=== PATIENT | male | born 1980 | race African-American/Black ===

== ENCOUNTER 2016-11-29 16:30 | Emergency (ER) | payer SELFPAY ==
[~2016-11-29] VITALS: Ht 170.2 cm; Wt 55.3 kg
[2016-11-29] MEDS ORDERED: IV NORMAL SALINE 1000ML BAG 1,000 ML IV ONE (17:00)
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
[2016-11-29 19:18] VITALS: BP 120/77
--- NOTE | 2016-11-30 08:07 | RAD ---
Right foot, 3 views, 11/29/2016: History: Injury, pain No fracture or dislocation is identified. There is mild subcutaneous edema. IMPRESSION: No acute bony abnormality is detected.
--- NOTE | 2016-11-30 08:09 | RAD ---
Left hand, 3 views, 11/29/2016: History: Injury, pain No fracture or dislocation is identified. The soft tissues are unremarkable. IMPRESSION: No acute left hand abnormality is detected.
== END 2016-11-29 19:25 | disposition home or self-care (01) ==
LOC: ER 16:30
DX: S60.222A Contusion of left hand, initial encounter (principal); S90.31XA Contusion of right foot, initial encounter; R51 Headache; F17.210 Nicotine dependence, cigarettes, uncomplicated; V03.90XA Pedestrian on foot injured in collision with car, pick-up truck or van, unspecified whether traffic or nontraffic accident, initial encounter; Y93.01 Activity, walking, marching and hiking; Y99.8 Other external cause status; Y92.89 Other specified places as the place of occurrence of the external cause
CPT/HCPCS: 70450; 72125; 72128; 73130; 73630; 96360; 99284; J7030

== ENCOUNTER 2018-05-08 18:34 | Emergency (ER) | payer OTHER ==
[~2018-05-08] VITALS: Ht 172.7 cm; Wt 55.3 kg
[2018-05-08 18:48] VITALS: BP 115/81
[2018-05-08] MEDS ORDERED: NAPROXEN 500 MG TABLET PO STA (19:40)
[2018-05-08] MEDS ORDERED: CYCLOBENZAPRINE 10 MG TABLET. PO ONE (19:45)
[2018-05-08] MEDS ORDERED: HYDROcodone/APAP 5/325MG 1 TAB TABLET PO ONE (19:45)
[2018-05-08] MEDS ORDERED: CYCL10TA2 PO (19:49)
[2018-05-08] MEDS ORDERED: DICL50TA4 PO (19:49)
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
== END 2018-05-08 19:54 | disposition home or self-care (01) ==
LOC: ER 18:34
DX: M25.512 Pain in left shoulder (principal); M54.5 Low back pain; R07.81 Pleurodynia; V43.52XA Car driver injured in collision with other type car in traffic accident, initial encounter; Y93.89 Activity, other specified; Y92.89 Other specified places as the place of occurrence of the external cause; Y99.8 Other external cause status
CPT/HCPCS: 71101; 72100; 73030; 99284

== ENCOUNTER 2019-04-27 01:53 | Emergency (ER) | payer SELFPAY ==
[~2019-04-27] VITALS: Ht 170.2 cm; Wt 59.0 kg
[~2019-04-27 01:53] MED LIST: CYCL10TA2 PO; DICL50TA4 PO
--- NOTE | 2019-04-27 02:38 | PHYS DOC ---
Past Medical History Past Medical History: No Pertinent History Past Surgical History: No Surgical History Alcohol Use: Occasionally Drug Use: None Adult General Chief Complaint Chief Complaint: URINARY RETENTION [place] [facility] [facility] HPI 38-year-old male presents to the emergency department with complaints of urinary retention. As any fever, blood, burning with urination however states he's had difficulty. This is been ongoing times one week. Patient describes abdominal di stention. Denies any back pain or flank pain. He was told when he was younger that he of enlarged prostate. Patient denies any chest pain, shortness of breath nausea, vomiting. All other ROS negative unless documented in HPI Review of Systems Review of Systems See Above Allergies Allergies Allergies Coded Allergies Type Severity Reaction Last Updated Verified No Known Drug Allergies 05/15/15 No Physical Exam Physical Exam See Above Constitutional: Well developed, well nourished, no acute distress, non-toxic appearance. [] Cardiovascular:Heart rate regular rhythm, no murmur [] Lungs & Thorax: Bilateral breath sounds clear to auscultation [] Abdomen: Bowel sounds normal, soft, no tenderness, no masses, no pulsatile masses. Bladder distention [] Skin: Warm, dry, no erythema, no rash. [] Back: No tenderness, no CVA tenderness. [] Extremities: No tenderness, no edema. [] Neurologic: Alert and oriented X 3, no focal deficits noted. [] Psychologic: Affect normal, judgement normal, mood normal. [] : prostate exam not boggy on exam, mild discomfort however no significant pain Current Patient Data Vital Signs Vital Signs Date Time Temp Pulse Resp B/P (MAP) Pulse Ox O2 Delivery O2 Flow Rate FiO2 04/27/19 01:55 98.1 98 20 121/73 (89) 96 Room Air 98.1 Lab Values Laboratory Tests Test 04/27/19 02:14 Urine Collection Type Unknown Urine Color Yellow Urine Clarity Clear Urine pH 6.0 Urine Specific [place] <=1.005 Urine Protein Negative mg/dL (NEG-TRACE) Urine Glucose (UA) Negative mg/dL (NEG) Urine Ketones (Stick) Negative mg/dL (NEG) Urine Blood Negative (NEG) Urine Nitrite Negative (NEG) Urine Bilirubin Negative (NEG) Urine Urobilinogen Dipstick 0.2 mg/dL (0.2 mg/dL) Urine Leukocyte Esterase Negative (NEG) Urine RBC 0 /HPF (0-2) Urine WBC 0 /HPF (0-4) Urine Squamous Epithelial Cells Occ /LPF Urine Bacteria 0 /HPF (0-FEW) EKG EKG [] Radiology/Procedures Radiology/Procedures [] Course & Med Decision Making Course & Med Decision Making Pertinent Labs and Imaging studies reviewed. (See chart for details) [] 38-year-old male presents to the emergency department with complaints of urinary retention. As any fever, blood, burning with urination however states he's had difficulty. This is been ongoing times one week. Patient describes abdominal distention. Denies any back pain or flank pain. He was told when he was younger that he of enlarged prostate. Patient denies any chest pain, shortness of breath nausea, vomiting. UA reviewed - negative Bladder scan 210 Discussed findings with patient Plan for flomax upon discharge, recommend follow up with PCP as outpatient Return precautions provided Dragon Disclaimer Dragon Disclaimer This electronic medical record was generated, in whole or in part, using a voice recognition dictation system. Departure Departure Impression: Primary Impression: Urinary retention Disposition: 01 HOME, SELF-CARE Condition: STABLE Referrals: NO PCP (PCP) Patient Instructions: Urinary Retention, Acute, Male, [id number] Additional Instructions: Recommend follow up with PCP 3 - 5 days Return to the ER with worsening symptoms, intractable pain, fever, altered mental status Tylenol/Motrin as needed for pain Flomax 0.4mg po daily provided Scripts Tamsulosin Hcl (FLOMAX) 0.4 Mg Cap.er.24h 1 CAP PO DAILY for 30 Days, #30 CAP 0 Refills Prov: J LUIS REZA MD 04/27/19 J LUIS REZA MD Apr 27, 2019 02:38
[2019-04-27 02:49] LABS: BILIRUBIN,URINE NEGATIVE (NEG); CLARITY,URINE CLEAR; COLOR,URINE YELLOW; NITRITE,URINE NEGATIVE (NEG); PROTEIN,URINE NEGATIVE (NEG-TRACE); UROBILINOGEN,URINE 0.2 mg/dL (0.2 mg/dL)
[2019-04-27 02:55] LABS: BACTERIA,URINE 0 /HPF (0-FEW); RBC,URINE 0 /HPF (0-2); SQUAMOUS EPITHELIAL CELL,UR OCC /LPF; WBC,URINE 0 /HPF (0-4)
[2019-04-27] MEDS ORDERED: TAMS0.4C97 PO (03:09)
[2019-04-27 03:30] VITALS: BP 107/60
== END 2019-04-27 03:40 | disposition home or self-care (01) ==
LOC: ER 01:53
DX: R33.9 Retention of urine, unspecified (principal); R50.9 Fever, unspecified
CPT/HCPCS: 81001; 99284

== ENCOUNTER 2020-09-26 17:36 | Emergency (ER) | payer SELFPAY ==
[~2020-09-26] VITALS: Ht 170.2 cm; Wt 59.1 kg
[~2020-09-26 17:36] MED LIST changes: +TAMS0.4C97 PO
--- NOTE | 2020-09-26 18:41 | ED.ADGEN ---
Past Medical History Past Medical History: No Pertinent History Past Surgical History: No Surgical History Smoking Status: Current Every Day Smoker Alcohol Use: Occasionally Drug Use: None General Adult EDM: Chief Complaint: CHEST WALL PAIN HPI: HPI: Patient is a 39 year old male coming in for left-sided chest pain starting about 6 hours prior to evaluation. Patient states he was taking out the trash when he had a sudden onset of sharp left-sided chest pain radiating to his left shoulder. Says the pain is worse with taking a deep breath, movement or palpation. Patient denies any prior history of pain like this in the past. Denies any past medical history. Denies any recent fevers, cough, vomiting or diarrhea. Denies any personal or family medical history. Denies any history of clots or lower extremity edema. Patient states this was cigarettes but denies any alcohol or drug use. Review of Systems: Review of Systems: All other systems within normal limits except for as noted in the HPI Current Medications: Current Medications Medications (Trade) Dose Ordered Sig/Nilton Start Time Stop Time Status Last Admin Dose Admin Aspirin (Aspirin Chewable) 324 mg 1X ONCE 09/26/20 18:45 09/26/20 18:46 DC 09/26/20 20:01 324 MG Allergies: Allergies: Allergies Coded Allergies Type Severity Reaction Last Updated Verified No Known Drug Allergies 05/15/15 No Physical Exam: PE: Constitutional: Well developed, well nourished, no acute distress, non-toxic appearance. [] HENT: Normocephalic, atraumatic, bilateral external ears normal, nose normal. [] Eyes: PERRLA, conjunctiva normal, no discharge. [] Neck: No rigidity, supple, no stridor. [] Cardiovascular: Regular rate and rhythm, brisk cap refill [] Lungs & Thorax: Non labored symmetric respirations, no tachypnea or respiratory distress. Left anterior chest wall tenderness [] Abdomen: Soft, nondistended. Skin: Warm, dry, no erythema, no rash. [] Back: Unremarkable Extremities: No deformities, range of motion grossly intact, no lower extremity edema [] Neurologic: Alert and oriented X 3, no focal deficits noted. [] Psychologic: Affect normal, judgement normal, mood normal. [] Current Patient Data: Labs: Laboratory Tests Test 09/26/20 19:15 09/26/20 20:00 White Blood Count 9.9 x10^3/uL (4.0-11.0) Red Blood Count 3.94 x10^6/uL (4.30-5.70) L Hemoglobin 14.2 g/dL (13.0-17.5) Hematocrit 40.3 % (39.0-53.0) Mean Corpuscular Volume 102 fL (79-100) H Mean Corpuscular Hemoglobin 36 pg (25-35) H Mean Corpuscular Hemoglobin Concent 35 g/dL (31-37) Red Cell Distribution Width 13.8 % (11.5-14.5) Platelet Count 290 x10^3/uL (140-400) Neutrophils (%) (Auto) 61 % (31-73) Lymphocytes (%) (Auto) 29 % (24-48) Monocytes (%) (Auto) 9 % (0-9) Eosinophils (%) (Auto) 1 % (0-3) Basophils (%) (Auto) 1 % (0-3) Neutrophils # (Auto) 6.0 x10^3/uL (1.8-7.7) Lymphocytes # (Auto) 2.9 x10^3/uL (1.0-4.8) Monocytes # (Auto) 0.8 x10^3/uL (0.0-1.1) Eosinophils # (Auto) 0.1 x10^3/uL (0.0-0.7) Basophils # (Auto) 0.1 x10^3/uL (0.0-0.2) D-Dimer (Emily) 0.29 ug/mlFEU (0.00-0.50) Sodium Level 141 mmol/L (136-145) Potassium Level 3.5 mmol/L (3.5-5.1) Chloride Level 105 mmol/L (98-107) Carbon Dioxide Level 27 mmol/L (21-32) Anion Gap 9 (6-14) Blood Urea Nitrogen 10 mg/dL (8-26) Creatinine 1.0 mg/dL (0.7-1.3) Estimated GFR (Cockcroft-Gault) 101.2 BUN/Creatinine Ratio 10 (6-20) Glucose Level 97 mg/dL (70-99) Calcium Level 8.6 mg/dL (8.5-10.1) Total Bilirubin 0.3 mg/dL (0.2-1.0) Aspartate Amino Transferase (AST) 12 U/L (15-37) L Alanine Aminotransferase (ALT) 18 U/L (16-63) Alkaline Phosphatase 94 U/L (46-116) Troponin I Quantitative < 0.017 ng/mL (0.000-0.055) EH-Syq-D-Type Natriuretic Peptide 18 pg/mL (0-124) Total Protein 6.9 g/dL (6.4-8.2) Albumin 3.8 g/dL (3.4-5.0) Albumin/Globulin Ratio 1.2 (1.0-1.7) Lipase 107 U/L (73-393) Urine Collection Type Unknown Urine Color Yellow Urine Clarity Clear Urine pH 6.0 (<5.0-8.0) Urine Specific [place] >=1.030 (1.000-1.030) Urine Protein Negative mg/dL (NEG-TRACE) Urine Glucose (UA) Negative mg/dL (NEG) Urine Ketones (Stick) 40 mg/dL (NEG) Urine Blood Negative (NEG) Urine Nitrite Negative (NEG) Urine Bilirubin Small (NEG) Urine Urobilinogen Dipstick 1.0 mg/dL (0.2 mg/dL) Urine Leukocyte Esterase Negative (NEG) Urine RBC 1-2 /HPF (0-2) Urine WBC 1-4 /HPF (0-4) Urine Squamous Epithelial Cells Occ /LPF Urine Bacteria 0 /HPF (0-FEW) Urine Mucus Mod /LPF Urine Opiates Screen Neg (NEG) Urine Methadone Screen Neg (NEG) Urine Barbiturates Neg (NEG) Urine Phencyclidine Screen Neg (NEG) Urine Amphetamine/Methamphetamine Neg (NEG) Urine Benzodiazepines Screen Neg (NEG) Urine Cocaine Screen Pos (NEG) Urine Cannabinoids Screen Pos (NEG) Urine Ethyl Alcohol Neg (NEG) Laboratory Tests 09/26/20 19:15 Laboratory Tests 09/26/20 19:15 Vital Signs: Vital Signs Date Time Temp Pulse Resp B/P (MAP) Pulse Ox O2 Delivery O2 Flow Rate FiO2 09/26/20 18:05 99.0 76 18 129/72 (91) 97 Room Air 99.0 EKG: EKG: Sinus rhythm, heart rate 6 4 bpm, normal axis, no ST elevation or depression, no ectopy. Normal intervals. Possible U wave in V3 [] Heart Score: C/O Chest Pain: Yes HEART Score for Chest Pain: HEART Score for Chest Pain Response (Comments) Value History Slighlty/Non-Suspicious 0 ECG Normal 0 Age < 45 0 Risk Factors No Risk Factors 0 Troponin < Normal Limit 0 Total 0 Risk Factors: Risk Factors: DM, Current or recent (<one month) smoker, HTN, HLP, family history of CAD, obesity. Risk Scores: Score 0 - 3: 2.5% MACE over next 6 weeks - Discharge Home Score 4 - 6: 20.3% MACE over next 6 weeks - Admit for Clinical Observation Score 7 - 10: 72.7% MACE over next 6 weeks - Early Invasive Strategies Radiology/Procedures: Radiology/Procedures: EXAMINATION: XR CHEST 2V. HISTORY: 39 years Male Reason: left chest pain / Spl. Instructions: / History: . . COMPARISON: May 08, 2018. Findings: The lungs are clear. The heart size is normal. There is no effusion or pneumothorax. The mediastinum and dash appear unremarkable. Impression: Unremarkable study. [] Course & Med Decision Making: Course & Med Decision Making Pertinent Labs and Imaging studies reviewed. (See chart for details) Troponin negative over 6 hours after initiation of pain. Discussed patient to not use cocaine. Hydrate and use NSAIDs for pain control [] Dragon Disclaimer: Dragon Disclaimer: This electronic medical record was generated, in whole or in part, using a voice recognition dictation system. Departure Departure Impression: Primary Impression: Anterior chest wall pain Disposition: HOME / SELF CARE / HOMELESS Condition: STABLE Referrals: NO PCP (PCP) Patient Instructions: Chest Pain (Nonspecific) Additional Instructions: Take ibuprofen or other NSAID directed on bottle for pain. Avoid heavy lifting or drug use JUSTINE MOTT MD September 26, 2020 18:41
--- NOTE | 2020-09-26 18:49 | EKG ---
[facility] [address] [place] [address] Test Date: 2020-09-26 Test Time: 18:16:27 Pat Name: GABRIELLE AG Department: Room: Gender: M Senior Principal: : 1980 Requested By: JUSTINE MOTT Order Number: [id number] Reading MD: Measurements Intervals [place] Rate: 64 P: 74 TX: 114 QRS: 79 QRSD: 98 T: 63 QT: 378 QTc: 394 Interpretive Statements SINUS RHYTHM NORMAL ECG RI6.02 No previous ECG available for comparison
--- NOTE | 2020-09-26 18:58 | RAD ---
Site ID: [id number] EXAMINATION: XR CHEST 2V. HISTORY: 39 years Male Reason: left chest pain / Spl. Instructions: / History: . . COMPARISON: May 08, 2018. Findings: The lungs are clear. The heart size is normal. There is no effusion or pneumothorax. The mediastinum and dash appear unremarkable. Impression: Unremarkable study. Electronically signed by: Sathish Avalos MD (09/26/2020 6:55 PM) [id number]
[2020-09-26 19:30] LABS: BASO # 0.1 x10^3/uL (0.0-0.2); BASO % 1 % (0-3); EOS # 0.1 x10^3/uL (0.0-0.7); EOS % 1 % (0-3); HEMATOCRIT 40.3 % (39.0-53.0); HEMOGLOBIN 14.2 g/dL (13.0-17.5); LYMPH # 2.9 x10^3/uL (1.0-4.8); LYMPH % 29 % (24-48); MEAN CORPUSCULAR HEMOGLOBIN 36 pg (25-35); MEAN CORPUSCULAR HGB CONC 35 g/dL (31-37); MEAN CORPUSCULAR VOLUME 102 fL (79-100); MONO # 0.8 x10^3/uL (0.0-1.1); MONO % 9 % (0-9); NEUT % 61 % (31-73); PLATELET COUNT 290 x10^3/uL (140-400); RED BLOOD COUNT 3.94 x10^6/uL (4.30-5.70); RED CELL DISTRIBUTION WIDTH 13.8 % (11.5-14.5); WHITE BLOOD COUNT 9.9 x10^3/uL (4.0-11.0)
[2020-09-26 19:44] LABS: CALCIUM 8.6 mg/dL (8.5-10.1); GFR 101.2; POTASSIUM 3.5 mmol/L (3.5-5.1)
[2020-09-26 19:56] LABS: ALBUMIN 3.8 g/dL (3.4-5.0); ALBUMIN/GLOBULIN RATIO 1.2 (1.0-1.7); TOTAL BILIRUBIN 0.3 mg/dL (0.2-1.0); TOTAL PROTEIN 6.9 g/dL (6.4-8.2)
[2020-09-26] MEDS: ASPIRIN CHEWABLE 81 MG TABLET. PO ONE (20:01)
[2020-09-26 20:08] LABS: BILIRUBIN,URINE SMALL (NEG); CLARITY,URINE CLEAR; COLOR,URINE YELLOW; NITRITE,URINE NEGATIVE (NEG); PROTEIN,URINE NEGATIVE (NEG-TRACE)
[2020-09-26 20:20] LABS: BACTERIA,URINE 0 /HPF (0-FEW)
[2020-09-26 20:21] LABS: AMPHETAMINE/METHAMPHETAMINE NEG (NEG); BARBITURATES NEG (NEG); BENZODIAZEPINES NEG (NEG); CANNABINOIDS POS (NEG); COCAINE POS (NEG); METHADONE NEG (NEG); OPIATES NEG (NEG); PHENCYCLIDINE NEG (NEG)
[2020-09-26 20:51] VITALS: BP 113/67
== END 2020-09-26 21:00 | disposition home or self-care (01) ==
LOC: ER 17:36
DX: R07.89 Other chest pain (principal); F17.200 Nicotine dependence, unspecified, uncomplicated
CPT/HCPCS: 36415; 71046; 80053; 80307; 81001; 83690; 83880; 84484; 85025; 85379; 93005; 99285

== ENCOUNTER 2021-06-30 14:33 | Emergency (ER) | payer SELFPAY ==
[~2021-06-30] VITALS: Ht 170.2 cm; Wt 59.1 kg
[~2021-06-30 14:33] MED LIST changes: +CYCL10TA19 PO; -CYCL10TA2 PO
[2021-06-30 14:47] VITALS: BP 115/71
[2021-06-30] MEDS ORDERED: HYDROcodone/APAP 5/325MG 1 TAB TABLET PO ONE (16:30)
[2021-06-30] MEDS ORDERED: LIDOCAINE 2% VISCOUS 15 ML SOLUTION. SWSW ONE (16:30)
[2021-06-30] MEDS ORDERED: AMOX500T PO (16:51)
[2021-06-30] MEDS ORDERED: HYDR-2761 PO (16:51)
--- NOTE | 2021-06-30 16:52 | PHYS DOC ---
Past Medical History Past Medical History: No Pertinent History Past Surgical History: No Surgical History Smoking Status: Current Every Day Smoker Alcohol Use: Occasionally Drug Use: None General Adult EDM: Chief Complaint: DENTAL PROBLEM HPI: HPI: Patient is a 40 year old male who presents the ED today complaining of moderate pain in his mouth, patient states he has bad teeth and has no money to remove them or see a dentist. He states now he has sores in his mouth. He states symptoms have been going on for a while but today they got worse. Patient denies any fever or trismus. Patient states she is a current smoker. Review of Systems: Review of Systems: Constitutional: Denies fever or chills. [] HENT: Denies nasal congestion or sore throat. [] Patient has very poor dentition, multiple teeth are decayed some of them appear to be about to fall out. I did not see any obvious sores in his mouth. No gum erythema. Musculoskeletal: Denies back pain or joint pain. [] Integument: Denies rash. [] Neurologic: Denies headache, focal weakness or sensory changes. [] Psychiatric: Denies depression or anxiety. [] Heart Score: C/O Chest Pain: N/A Risk Factors: Risk Factors: DM, Current or recent (<one month) smoker, HTN, HLP, family history of CAD, obesity. Risk Scores: Score 0 - 3: 2.5% MACE over next 6 weeks - Discharge Home Score 4 - 6: 20.3% MACE over next 6 weeks - Admit for Clinical Observation Score 7 - 10: 72.7% MACE over next 6 weeks - Early Invasive Strategies Current Medications: Current Medications Medications (Trade) Dose Ordered Sig/Nilton Start Time Stop Time Status Last Admin Dose Admin Acetaminophen/ Hydrocodone Bitart (Lortab 5/325) 2 tab 1X ONCE 06/30/21 16:30 06/30/21 16:31 DC 06/30/21 16:36 2 TAB Lidocaine HCl (Viscous Lidocaine) 15 ml 1X ONCE 06/30/21 16:30 06/30/21 16:31 DC 06/30/21 16:37 15 ML Allergies: Allergies: Allergies Coded Allergies Type Severity Reaction Last Updated Verified No Known Drug Allergies 05/15/15 No Physical Exam: PE: Constitutional: Well developed, well nourished, no acute distress, non-toxic appearance. [] HENT: Normocephalic, atraumatic, bilateral external ears normal, oropharynx iman st, no oral exudates, nose normal. [] Eyes: PERRLA, EOMI, conjunctiva normal, no discharge. [] Neck: Normal range of motion, no tenderness, supple, no stridor. [] Cardiovascular:Heart rate regular rhythm, no murmur [] Lungs & Thorax: Bilateral breath sounds clear to auscultation [] Abdomen: Bowel sounds normal, soft, no tenderness, no masses, no pulsatile masses. [] Skin: Warm, dry, no erythema, no rash. [] Back: No tenderness, no CVA tenderness. [] Extremities: No tenderness, no cyanosis, no clubbing, ROM intact, no edema. [] Neurologic: Alert and oriented X 3, normal motor function, normal sensory function, no focal deficits noted. [] Psychologic: Affect normal, judgement normal, mood normal. [] Current Patient Data: Vital Signs: Vital Signs Date Time Temp Pulse Resp B/P (MAP) Pulse Ox O2 Delivery O2 Flow Rate FiO2 06/30/21 16:36 16 97 Room Air 06/30/21 14:47 98.7 106 115/71 (86) 98.7 EKG: EKG: [] Radiology/Procedures: Radiology/Procedures: [] Course & Med Decision Making: Course & Med Decision Making Pertinent Labs and Imaging studies reviewed. (See chart for details) This a 40-year-old male patient with dental pain. Patient was complaining of sores in his mouth, I did not see any sores. He does has very poor dentition. Discharged with amoxicillin, lidocaine viscous for his mouth sores and naproxen, prescription for 8 tablets of [place] provided considering he is moaning in the ED in pain, encouraged to consider smoking cessation and follow-up with the PCP and dentist. Provided resources for dental schools and affordable dental care Rachelle Disclaimer: Rachelle Disclaimer: This electronic medical record was generated, in whole or in part, using a voice recognition dictation system. Departure Departure Impression: Primary Impression: Dentalgia Additional Impressions: Infected dental caries Smoking addiction Disposition: HOME / SELF CARE / HOMELESS Condition: STABLE Referrals: NO PCP (PCP) Follow up with your dentist or a dentist from the list provided as soon as you can Patient Instructions: Dental Caries, Smoking Cessation Additional Instructions: You were evaluated in the emergency room, we highly encourage you to consider smoking cessation. Please follow-up with dentist from the list provided as soon as you can. Use the prescribed medications as ordered. Scripts Hydrocodone Bit/Acetaminophen (HYDROCODONE-APAP 5-325 ) 1 Tab Tablet 1 TAB PO PRN Q6HRS PRN for PAIN, #10 TAB 0 Refills Prov: ROXANE MCNAIR APRN 06/30/21 Amoxicillin (AMOXICILLIN) 500 Mg Tablet 1 TAB PO BID, #20 TAB Prov: ROXANE MCNAIR APRN 06/30/21 ROXANE MCNAIR APRN Jun 30, 2021 16:52
== END 2021-06-30 17:00 | disposition home or self-care (01) ==
LOC: ER 14:33
DX: K04.7 Periapical abscess without sinus (principal); F17.200 Nicotine dependence, unspecified, uncomplicated
CPT/HCPCS: 99283